=== PATIENT | male | born 1985 | race Caucasian/White ===

== ENCOUNTER 2023-04-28 19:41 | Emergency (ER) | payer MEDICAID ==
[~2023-04-28] VITALS: Ht 185.4 cm; Wt 104.3 kg
[2023-04-28] MEDS ORDERED: OLANZAPINE 10 MG VIAL IM ONE ×2 (20:15→20:21)
[2023-04-28] MEDS ORDERED: LORAZEPAM 2 MG/1 ML VIAL IM ONE (20:15)
[2023-04-28] MEDS ORDERED: LORAZEPAM 2 MG/1 ML VIAL ONE (20:22)
[2023-04-28 20:33] LABS: CALCIUM 8.4 mg/dL (8.5-10.1); CARBON DIOXIDE 22 mmol/L (21-32); CHLORIDE 101 mmol/L (98-107); CREATININE 0.9 mg/dL (0.6-1.3); GLUCOSE 100 mg/dL (74-106); POTASSIUM 3.2 mmol/L (3.5-5.1); SODIUM SERUM 135 mmol/L (136-145); UREA NITROGEN, BLOOD 14 mg/dL (7-18)
[2023-04-28 20:38] LABS: ACETAMINOPHEN < 2.0 ug/mL (10-30); ALANINE AMINOTRANSFERASE 29 U/L (16-63); ALBUMIN 3.6 g/dL (3.4-5.0); ALKALINE PHOSPHATASE 96 U/L (50-136); ASPARTATE AMINOTRANSFERASE 15 U/L (15-37); BILIRUBIN,DIRECT 0.2 mg/dL (0.0-0.2); BILIRUBIN,TOTAL 0.6 mg/dL (0.2-1.0); TOTAL PROTEIN, SERUM 7.1 g/dL (6.4-8.2)
[2023-04-28 20:49] LABS: ETHANOL < 3 MG/DL (0-10)
[2023-04-28 21:01] LABS: BASOPHILS # (AUTO) 0.1 K/UL (0.0-0.2); BASOPHILS % (AUTO) 0.6 % (0.0-2.0); EOSINOPHILS % (AUTO) 0.2 % (0.0-7.0); HEMATOCRIT 38.5 % (36.7-47.1); HEMOGLOBIN 12.8 g/dL (12.5-16.3); LYMPHOCYTES # (AUTO) 1.5 K/uL (0.8-4.8); LYMPHOCYTES % (AUTO) 15.5 % (20.5-51.5); MEAN CORPUSCULAR HEMOGLOBIN 31.1 uug (23.8-33.4); MEAN CORPUSCULAR HGB CONC 33 g/dL (32.5-36.3); MEAN CORPUSCULAR VOLUME 93.3 fL (73.0-96.2); MONOCYTES # (AUTO) 0.6 K/uL (0.1-1.30); MONOCYTES % (AUTO) 6.4 % (0.0-11.0); NEUTROPHILS # (AUTO) 7.7 K/uL (1.8-8.9); NEUTROPHILS % (AUTO) 77.3 % (38.5-71.5); PLATELET COUNT (AUTO) 306 K/uL (152-348); RED BLOOD CELL COUNT(AUTO) 4.13 MIL/uL (4.06-5.63); RED CELL DISTRIBUTION WIDTH 14.3 % (12.1-16.2); WHITE BLOOD COUNT (AUTO) 9.9 K/uL (3.6-10.2)
[2023-04-28] MEDS ORDERED: LORAZEPAM 1 MG TABLET ONE (21:02)
[2023-04-28] MEDS ORDERED: OLANZAPINE 5 MG TABLET ONE (21:02)
[2023-04-28] MEDS ORDERED: POTASSIUM CHLORIDE 20 MEQ TAB.PRT.SR PO ONE (21:15)
[2023-04-28] MEDS ORDERED: OLANZAPINE 5 MG TABLET PO ONE (21:15)
[2023-04-28] MEDS ORDERED: LORAZEPAM 0.5 MG TABLET PO ONE (21:15)
[2023-04-28] MEDS ORDERED: POTASSIUM CHLORIDE 20 MEQ TAB.PRT.SR ONE (21:16)
[2023-04-28 22:45] LABS: *AMPHETAMINE, URINE POSITIVE (NEGATIVE); *BARBITURATE, URINE NEGATIVE (NEGATIVE); *BENZODIAZEPINE, URINE NEGATIVE (NEGATIVE); *CANNABINOID, URINE NEGATIVE (NEGATIVE); *COCCAINE, URINE NEGATIVE (NEGATIVE); *OPIATE, URINE NEGATIVE (NEGATIVE); *PHENCYCLIDINE SCREEN,URINE NEGATIVE (NEGATIVE); FENTANYL, URINE NEGATIVE (NEGATIVE)
[2023-04-29 06:24] VITALS: BP 100/63; TEMP 98.9; O2SAT 95
== END 2023-04-29 05:30 | disposition home or self-care (01) ==
LOC: ER 19:43
DX: F15.10 Other stimulant abuse, uncomplicated (principal); F29 Unspecified psychosis not due to a substance or known physiological condition; E87.6 Hypokalemia
CPT/HCPCS: 80076; 80048; 85025; 36415; 99284; 80299; 80320; 80307; J2060; A4606; A4663; G0480; J2358